=== PATIENT | male | born 1955 | race Caucasian/White ===

== ENCOUNTER 2018-03-07 16:32 | Inpatient (IN) | payer BC, OTHER ==
[~2018-03-07] VITALS: Ht 190.5 cm; Wt 137.6 kg
[2018-03-07 18:04] LABS: Basophils # (auto) 0 uL; Basophils % (auto) 0.5 % (0.0-2.0); Eosinophils # (auto) 0.4 uL; Eosinophils % (auto) 4.5 % (0.0-7.0); Hematocrit 45.7 % (41.0-53.0); Hemoglobin 15.7 g/dL (13.5-17.5); Lymphocytes # (auto) 1.4 uL; Lymphocytes % (auto) 17.2 % (10.0-50.0); Mean Corpuscular Hemoglobin 29.8 pg (28.0-32.0); Mean Corpuscular Hgb Conc. 34.4 g/dL (32.0-36.0); Mean Corpuscular Volume 86.7 fL (80.0-100.0); Monocytes # (auto) 0.5 uL; Monocytes % (auto) 6.1 % (0.0-12.0); Neutrophils % (auto) 71.7 % (37.0-80.0); Nucleated Red Blood Cells % 0.1 %; Platelet Count (auto) 239 10^3/uL (140-450); Red Blood Cells 5.27 10^6/uL (4.5-5.90); Red Cell Distribution Width 14.8 % (11.8-14.3); White Blood Cell 8.3 10^3/uL (4.4-10.8)
[2018-03-07 18:19] LABS: Alanine Aminotransferase 20 U/L (16-61); Albumin 3.4 g/dL (3.4-5.0); Anion Gap 10 (5-15); Aspartate Aminotransferase 15 U/L (15-37); BUN/Creatinine Ratio 11.9; Blood Urea Nitrogen 13 mg/dL (7-18); Calcium 8.7 mg/dL (8.5-10.1); Carbon Dioxide 23 mmol/L (21-32); Chloride 111 mmol/L (98-107); GFR African American 89 mL/min; GFR Non-African American 73 mL/min; Glucose 111 mg/dL (74-106); Magnesium 2.3 mg/dL (1.6-2.6); Potassium 3.3 mmol/L (3.5-5.1); Sodium 144 mmol/L (136-145)
[2018-03-07 18:24] LABS: Alkaline Phosphatase 85 U/L (45-117); Total Protein 7.3 g/dL (6.4-8.2)
[2018-03-07 18:33] LABS: INR 0.95 (0.9-1.15); Partial Thromboplastin Time 26.8 sec (23.78-33.04); Prothrombin Time 10.2 sec (9.27-12.13)
[2018-03-07] MEDS ORDERED: MORPHINE SULFATE 4 MG/ML SYR/VIAL IV ONE (19:00)
[2018-03-07] MEDS ORDERED: ONDANSETRON HCL 4 MG/2 ML VIAL ONE (20:19)
[2018-03-07] MEDS ORDERED: ONDANSETRON HCL 4 MG/2 ML VIAL IV ONE (20:30)
[2018-03-07] MEDS ORDERED: ONDANSETRON HCL 4 MG/2 ML VIAL IV PRN (20:45)
[2018-03-07] MEDS ORDERED: TEMAZEPAM 15 MG CAP PO PRN (20:45)
[2018-03-07] MEDS ORDERED: POTASSIUM CHL 20 Meq TABLET PO ONE (20:45)
[2018-03-07] MEDS ORDERED: ACETAMINOPHEN 325 MG TAB PO PRN (20:45)
[2018-03-07 21:11] LABS: Urine Bacteria NONE SEEN /hpf (None Seen); Urine Blood Negative /uL (Negative); Urine Mucus FEW (None Seen); Urine Specific Gravity 1.017 (1.001-1.035); Urine WBC 1 /hpf (0 - 3)
[2018-03-07 21:52] VITALS: BP 121/83
[2018-03-07 22:00] VITALS: BP 121/83
[2018-03-07] MEDS: FAMOTIDINE 20 MG TAB PO SCH (22:00)
[2018-03-07] MEDS: ATORVASTATIN 20 MG TAB PO SCH (22:00)
[2018-03-07] MEDS: HYDROcodone-ACET 5/325MG TAB PO PRN (23:00)
[2018-03-08] VITALS (7 sets, daily range): BP systolic 100–121; BP diastolic 66–77
[2018-03-08] MEDS: HYDROcodone-ACET 5/325MG TAB PO PRN ×4 (05:15→20:34)
[2018-03-08] MEDS ORDERED: ASPI81TA27 PO (08:35)
[2018-03-08] MEDS ORDERED: ALPR0.5T PO (08:35)
[2018-03-08] MEDS ORDERED: METO-631 PO (08:35)
[2018-03-08] MEDS ORDERED: AMLO5TAB13 PO (08:35)
[2018-03-08] MEDS ORDERED: FLUO-125 PO (08:35)
[2018-03-08] MEDS ORDERED: ASPirin 81 mg TAB PO SCH (10:00)
[2018-03-08] MEDS: FAMOTIDINE 20 MG TAB PO SCH ×2 (10:39→21:09)
[2018-03-08] MEDS: ENOXAPARIN SOD 40 MG/0.4 ML SYRINGE SC SCH (10:39)
[2018-03-08] MEDS ORDERED: LORazepam 2MG/ML-1ML VIAL IV PRN (14:30)
[2018-03-08] MEDS: ATORVASTATIN 20 MG TAB PO SCH (21:08)
[2018-03-09 05:00] VITALS: BP 117/78
[2018-03-09] MEDS: HYDROcodone-ACET 5/325MG TAB PO PRN (06:26)
[2018-03-09 06:47] LABS: Basophils # (auto) 0 uL; Basophils % (auto) 0.5 % (0.0-2.0); Eosinophils # (auto) 0.4 uL; Eosinophils % (auto) 6.3 % (0.0-7.0); Hematocrit 39.5 % (41.0-53.0); Hemoglobin 13.8 g/dL (13.5-17.5); Lymphocytes # (auto) 1.7 uL; Lymphocytes % (auto) 29.4 % (10.0-50.0); Mean Corpuscular Hemoglobin 30.2 pg (28.0-32.0); Mean Corpuscular Volume 86.4 fL (80.0-100.0); Monocytes # (auto) 0.5 uL; Monocytes % (auto) 8.7 % (0.0-12.0); Neutrophils # (auto) 3.2 uL; Neutrophils % (auto) 55.1 % (37.0-80.0); Platelet Count (auto) 173 10^3/uL (140-450); Red Blood Cells 4.57 10^6/uL (4.5-5.90); Red Cell Distribution Width 14.8 % (11.8-14.3); White Blood Cell 5.9 10^3/uL (4.4-10.8)
[2018-03-09 07:01] LABS: Potassium 3.5 mmol/L (3.5-5.1)
[2018-03-09 07:08] LABS: BUN/Creatinine Ratio 19.5; Calcium 8.5 mg/dL (8.5-10.1)
[2018-03-09 08:30] VITALS: BP 109/87
[2018-03-09] MEDS: FAMOTIDINE 20 MG TAB PO SCH (09:09)
[2018-03-09] MEDS: ENOXAPARIN SOD 40 MG/0.4 ML SYRINGE SC SCH (09:09)
[2018-03-09 09:29] VITALS: BP 109/67
[2018-03-09] MEDS ORDERED: ASPirin 81 mg TAB PO SCH (10:00)
[2018-03-09] MEDS ORDERED: amLODIPine BESYLATE 5 MG TAB PO SCH (10:00)
[2018-03-09 12:38] VITALS: BP 112/68
[2018-03-09 14:17] VITALS: BP 109/67
== END 2018-03-09 16:41 | disposition home or self-care (01) | DRG 93 ==
LOC: ER 16:32 → OVERFLOW 20:42 → WEST WING 21:31
PROVIDERS: ADMIT Nurse Practitioner; ATTEND Family Medicine
DX: R20.0 Anesthesia of skin (principal); F41.9 Anxiety disorder, unspecified; E87.6 Hypokalemia; I10 Essential (primary) hypertension; I70.0 Atherosclerosis of aorta; M10.9 Gout, unspecified; M54.10 Radiculopathy, site unspecified; J44.9 Chronic obstructive pulmonary disease, unspecified; Z83.3 Family history of diabetes mellitus; Z82.49 Family history of ischemic heart disease and other diseases of the circulatory system; Z82.0 Family history of epilepsy and other diseases of the nervous system; Z79.82 Long term (current) use of aspirin
CPT/HCPCS: 36415; 70450; 71045; 80048; 80053; 80061; 81001; 83735; 83880; 84132; 84484; 85025; 85610; 85730; 93005; 93886; 94761; 96374; 96375; G0378; J2405